=== PATIENT | male | born 1980 | race Caucasian/White ===

== ENCOUNTER 2017-05-07 00:21 | Emergency (ER) | payer MEDICAID ==
[~2017-05-07] VITALS: Ht 167.6 cm; Wt 73.9 kg
[2017-05-07 00:26] VITALS: Ht 167.6 cm; Wt 73.9 kg
[2017-05-07] MEDS ORDERED: SOD CHLORIDE 0.9% 1,000 ML IV STA (01:01)
[2017-05-07] MEDS ORDERED: LORAZEPAM 2 MG INJ IV ONE (01:30)
--- NOTE | 2017-05-07 01:37 | RADRPT ---
PROCEDURE: Chest. CLINICAL INDICATION: Chest pain. TECHNIQUE: Single frontal view of the chest was obtained. COMPARISON: None. FINDINGS: The cardiac silhouette is within normal limits. The aortic arch is unremarkable. There is no focal consolidation, vascular congestion or pleural effusion. There is no pneumothorax. IMPRESSION: No evidence for active cardiopulmonary disease. .Yuan Ramos MD, MD Date Time Electronically viewed and signed by .Yuan Ramos MD, on 05/07/2017 01:37 .T/
[2017-05-07 04:00] VITALS: PULSE 81
[2017-05-07] MEDS ORDERED: OMEP40CA6 PO (04:42)
[2017-05-07] MEDS ORDERED: LORA1TAB PO (04:42)
--- NOTE | 2017-05-07 04:49 | ERD ---
ER Documentation Chief Complaint Chief Complaint NON RADIATING LEFT SIDE CHEST PRESSURE X2 +PAUL LEG SHAKINESS HPI This 37-year-old male who is an alcoholic complaining that he is having some midsternal left-sided sternal chest pain onset 5 or 6 hours ago. The patient states that it has been constantly there. The patient says that he is been drinking alcohol heavily over the past 3 days. He says he is an alcoholic and his last drink was about 2 hours prior to coming in. He has no shortness of breath and pain in the jaw shoulders elbow no palpitations no shortness of breath diaphoresis nausea. No prior history of cardiac disease. The patient tells me that he is "drunk" now ROS All systems reviewed and are negative except as per history of present illness. Medications Home Meds Active Scripts Omeprazole* (Omeprazole*) 40 Mg Capsule.dr, 40 MG PO DAILY, #10 CAP Prov:TRAE DURANSTOLOS A. DO 05/07/17 Lorazepam* (Lorazepam*) 1 Mg Tablet, 1 MG PO Q8 for ANXIETY, #15 TAB Prov:TRAE DURANSTLISBETS A. DO 05/07/17 Allergies Allergies: Coded Allergies: No Known Allergy (Unverified , 05/07/17) PMhx/Soc Medical and Surgical Hx: pt denies Medical Hx, pt denies Surgical Hx History of Surgery: No Anesthesia Reaction: No Hx Neurological Disorder: No Hx Respiratory Disorders: No Hx Cardiac Disorders: No Hx Psychiatric Problems: No Hx Miscellaneous Medical Probl: No Hx Alcohol Use: Yes (daily) Hx Substance Use: No Hx Tobacco Use: No Smoking Status: Never smoker FmHx Family History: No coronary disease Physical Exam Vitals Vital Signs Date Time Temp Pulse Resp B/P Pulse Ox O2 Delivery O2 Flow Rate FiO2 05/07/17 02:00 89 16 117/76 98 Nasal Cannula 2.0 05/07/17 01:59 98.2 98 117/76 05/07/17 00:26 97.7 105 20 139/85 100 Physical Exam Const: Well-developed, well-nourished Head: Atraumatic, normocephalic Eyes: Normal Conjunctiva, PERRLA, EOMI, normal sclera, no nystagmus ENT: Normal External Ears, Nose and Mouth, moist mucus membranes. Neck: Full range of motion. No meningismus, no lymphadenopathy. Resp: Clear to auscultation bilaterally, no wheezing, rhonchi, rales Cardio: Regular rate and rhythm, no murmurs, S1 S2 present Abd: Soft, non tender x 4, non distended. Normal bowel sounds, no guarding or rebound, no pulsitile abdominal masses or bruits Skin: No petechiae or rashes, no ecchymosis , no maculopapular rash Back: No midline or flank tenderness Ext: No cyanosis, or edema, FROM x 4, normal inspection, neurovascularly intact x 4 Neur: Awake and alert, STR 5/5 x 4, sensation intact x 4, no focal findings, cerebellum intact Psych: Normal Mood and Affect Result Diagram: 05/07/1710905/07/17109 Results 24 hrs Laboratory Tests Test 05/07/17 01:10 White Blood Count 8.810^3/ul Red Blood Count 6.0810^6/ul Hemoglobin 18.3g/dl Hematocrit 52.2% Mean Corpuscular Volume 85.9fl Mean Corpuscular Hemoglobin 30.1pg Mean Corpuscular Hemoglobin Concent 35.1g/dl Red Cell Distribution Width 13.2% Platelet Count 79728^3/UL Mean Platelet Volume 10.3fl Neutrophils % 42.1% Lymphocytes % 35.9% Monocytes % 8.4% Eosinophils % 12.2% Basophils % 0.6% Nucleated Red Blood Cells % 0.0/100WBC Neutrophils # 3.710^3/ul Lymphocytes # 3.210^3/ul Monocytes # 0.710^3/ul Eosinophils # 1.110^3/ul Basophils # 0.110^3/ul Nucleated Red Blood Cells # 0.010^3/ul Sodium Level 141mmol/L Potassium Level 4.0mmol/L Chloride Level 106mmol/L Carbon Dioxide Level 20mmol/L Anion Gap 19 Blood Urea Nitrogen 12mg/dl Creatinine 0.99mg/dl Glucose Level 126mg/dl Calcium Level 8.9mg/dl Total Bilirubin 0.2mg/dl Direct Bilirubin 0.00mg/dl Indirect Bilirubin 0.2mg/dl Aspartate Amino Transf (AST/SGOT) 55IU/L Alanine Aminotransferase (ALT/SGPT) 108IU/L Alkaline Phosphatase 143IU/L Troponin I < 0.012ng/ml Total Protein 8.1g/dl Albumin 4.2g/dl Globulin 3.90g/dl Albumin/Globulin Ratio 1.07 Current Medications Medications (Trade) Dose Ordered Sig/Antonia Route PRN Reason Start Time Stop Time Status Last Admin Dose Admin Sodium Chloride (NS) 1,000 ml @ 1,000 mls/hr Q1H STAT IV 05/07/17 01:01 05/07/17 02:00 DC 05/07/17 01:13 Lorazepam (Ativan) 0.5 mg ONCE ONCE IV 05/07/17 01:30 05/07/17 01:31 DC 05/07/17 01:13 Procedures/MDM EKG: Rate/Rhythm: Normal Sinus Rhythm,NL intervals QRS, ST, QT: NORMAL OR, QRS, QT] Impression: NORMAL EKG PROCEDURE: Chest. CLINICAL INDICATION: Chest pain. TECHNIQUE: Single frontal view of the chest was obtained. COMPARISON: None. FINDINGS: The cardiac silhouette is within normal limits. The aortic arch is unremarkable. There is no focal consolidation, vascular congestion or pleural effusion. There is no pneumothorax. IMPRESSION: No evidence for active cardiopulmonary disease. .Yuan Ramos MD, MD Date Time Electronically viewed and signed by .Yuan Ramos MD, on 05/07/2017 01:37 .T/ CC: SUSAN DURAN DO After Ativan the patient feels better. I feel the patient's chest pain may just be from him being intoxicated or is having some esophagitis. His troponin is negative. We will discharge him home with some Ativan. He says he had some shaking earlier but none now. He does not at all appear to be in alcohol withdrawal. Discussed with him alcohol withdrawal symptoms. We will provide him with some Ativan and omeprazole for any gastric/esophagitis Departure Diagnosis: Primary Impression: Alcohol abuse Additional Impression: Chest pain Chest pain type: unspecified Qualified Code: R07.9 - Chest pain, unspecified type Condition: Stable Patient Instructions: Chest Pain, Uncertain Cause, Alcohol Abuse SUSAN DURAN DO May 07, 2017 04:49
[2017-05-07 06:18] VITALS: BP 126/89; RESP 17; TEMP 98.1
== END 2017-05-07 06:20 | disposition home or self-care (01) ==
LOC: E/R 00:21
DX: F10.10 Alcohol abuse, uncomplicated (principal)
CPT/HCPCS: 36415; 71010; 80053; 84484; 85025; 96374; J2060; J7030; Z7502